=== PATIENT | male | born 1980 | race Caucasian/White ===

== ENCOUNTER 2022-08-31 09:17 | Emergency (ER) | payer OTHER ==
[2022-08-31 09:24] VITALS: BP 135/82; PULSE 71; RESP 16; TEMP 98.5; BMI 29.0
[2022-08-31 10:48] LABS: BASO % 0.6 % (0-2.0); EOS % 2.7 % (0-4.5); HEMATOCRIT 43.2 % (35.4-49); HEMOGLOBIN 14.8 GM/dL (11.7-16.9); LYMPH % 28.1 % (8-40); MCH 30.2 pg (25.7-33.7); MCHC 34.1 g/dl (32.0-35.9); MEAN CELL VOLUME 88.5 fl (80-96); MEAN PLT VOLUME 8.8 fl (7.5-11.1); MONO % 7.5 % (3.8-10.2); NEUT % 61.1 % (42.8-82.8); PLATELET COUNT 199 10^3/uL (134-434); RBC 4.88 M/mm3 (4.00-5.60); RDW 13.5 % (11.9-15.9); WHITE BLOOD COUNT 8.9 K/mm3 (4.0-10.0)
[2022-08-31 11:10] LABS: ALBUMIN 3.6 g/dl (3.4-5.0); BLOOD UREA NITROGEN 15.5 mg/dL (7-18)
[2022-08-31 11:13] LABS: CREATININE 0.8 mg/dL (0.55-1.3)
[2022-08-31 11:15] LABS: BILIRUBIN,TOTAL 0.4 mg/dL (0.2-1)
[2022-08-31 11:16] LABS: TOT PROT 6.7 g/dl (6.4-8.2)
== END 2022-08-31 14:15 | disposition home or self-care (01) ==
LOC: JER 09:17
DX: R79.89 Other specified abnormal findings of blood chemistry (principal); R94.31 Abnormal electrocardiogram [ECG] [EKG]
CPT/HCPCS: 36415; 80053; 85025; 93005; 93010; 99284-25